=== PATIENT | female | born 1985 | race African-American/Black ===

== ENCOUNTER 2019-09-25 05:18 | Emergency (ER) | payer SELFPAY ==
[~2019-09-25] VITALS: Ht 172.7 cm; Wt 67.0 kg
[2019-09-25] MEDS ORDERED: KETOROLAC 30MG/ML VIAL IM ONE (06:30)
[2019-09-25 07:55] VITALS: BP 152/97
== END 2019-09-25 07:59 | disposition home or self-care (01) ==
LOC: ER 05:18
DX: S20.01XA Contusion of right breast, initial encounter (principal); I10 Essential (primary) hypertension; W18.39XA Other fall on same level, initial encounter; Y93.89 Activity, other specified; Y92.89 Other specified places as the place of occurrence of the external cause; Y99.8 Other external cause status
CPT/HCPCS: 76641; 81025; 99284; J1885

== ENCOUNTER 2024-07-24 20:49 | Emergency (ER) | payer MEDICAID ==
[~2024-07-24] VITALS: Ht 170.2 cm; Wt 95.2 kg
[2024-07-24 21:01] VITALS: O2SAT 100
[2024-07-24 21:07] VITALS: BP 163/102; PULSE 80; RESP 14; TEMP 37
== END 2024-07-25 03:00 | disposition left against medical advice (07) ==
LOC: ER 20:49
DX: S00.11XA Contusion of right eyelid and periocular area, initial encounter (principal); I10 Essential (primary) hypertension; Z79.899 Other long term (current) drug therapy; Z88.1 Allergy status to other antibiotic agents; Z88.2 Allergy status to sulfonamides; X58.XXXA Exposure to other specified factors, initial encounter; Y93.89 Activity, other specified; Y92.89 Other specified places as the place of occurrence of the external cause; Y99.8 Other external cause status
CPT/HCPCS: 70486; 99284